=== PATIENT | male | born 1990 | race Caucasian/White ===

== ENCOUNTER 2019-11-16 03:10 | Emergency (ER) | payer OTHER ==
[~2019-11-16] VITALS: Ht 182.9 cm; Wt 65.8 kg
[2019-11-16 03:23] VITALS: BP 122/76
[2019-11-16] MEDS ORDERED: AMOXIL PO STA (04:12)
--- NOTE | 2019-11-16 04:17 | ER.PDOC ---
General Chief Complaint: Sore Throat Stated Complaint: FEVER,,SWOLLEN LYMPH GLANDS Time seen by MD: 04:13 Source: patient Exam Limitations: no limitations History of Present Illness Initial Comments Sore throat and fever for past few days. No exposure to a person positive for COVID-19 but patient has a history of recurrent strep infection. Timing/Duration: gradual Associated Symptoms: fever/chills, mod sore throat Severity: moderate Prior symptoms/Treatment: Similar symptoms previous Allergies: Coded Allergies: codeine (Unverified Allergy, Mild, HYPERACTIVITY, 11/10/13) Home Meds No Active Prescriptions or Reported Meds Past Medical History Medical History: no pertinent history Surgical History: no surgical history Social History Alcohol Use: none Drug Use: none Constitutional: see HPI Throat: see HPI Respiratory: no symptoms reported Cardiovascular: no symptoms reported Gastrointestinal: no symptoms reported Musculoskeletal: no symptoms reported All Other Systems: Reviewed and Negative Physical Exam General Appearance: alert, no distress Head/Neck: cervical lymphadenopathy Eyes: eyes nml inspection, PERRL, no nystagmus Mouth: lips, gums nml, no drooling, no thrush, membranes nml Throat: pharyngeal erythema Respiratory: no resp. distress, lungs clear CVS: reg. rate & rhythm, heart sounds nml Abdomen: non-tender, no organomegaly Extremities: non-tender, ROM nml Skin Exam: Normal Color, Warm/Dry NEURO/PSYCH: oriented X3, mood/effect nml Results/Orders Results/Orders Orders - CATRACHITO NAQVI MD Strep Screen (11/16/19 03:39) Influenza A&B (11/16/19 03:39) Amoxicillin (Amoxil) (11/16/19 04:12) Vital Signs Date Time Temp Pulse Resp B/P (MAP) Pulse Ox O2 Delivery O2 Flow Rate FiO2 11/16/19 03:33 100.1 81 18 96 Room Air 11/16/19 03:23 100.1 81 18 96 Room Air 11/16/19 03:23 100.1 80 18 11/16/19 03:23 100.1 81 18 96 Laboratory Tests Test 11/16/19 03:15 Influenza Type A Antigen NEGATIVE (NEG) Influenza B Immunofluorescence NEGATIVE (NEG) Group A Streptococcus Screen POSITIVE (NEGATIVE) Departure Time of Disposition: 04:16 Disposition: 01 HOME, SELF-CARE Impression: Primary Impression: Streptococcus pharyngitis Condition: Stable Referrals: SONDRA WEISS (PCP) PRIMARY CARE PROVIDER Additional Instructions: Amoxil Chloraseptic spray OTC as directed Ibuprofen or Tylenol F/U with your PCP in 3-5 days Return to ED if worsening symptoms or concerns Scripts No Active Prescriptions or Reported Meds Duration or Time Spent with Pa: 10 min CATRACHITO NAQVI MD Nov 16, 2019 04:17
[2019-11-16] MEDS ORDERED: AMOXIL PO ONE (04:19)
== END 2019-11-16 04:43 | disposition home or self-care (01) ==
LOC: ER 03:10
DX: J02.0 Streptococcal pharyngitis (principal); Z88.5 Allergy status to narcotic agent
CPT/HCPCS: 87804; 87880; 99283